=== PATIENT | female | born 1945 ===

== ENCOUNTER 2021-08-15 10:52 | Outpatient (CLI) | payer OTHER | END 2021-08-15 13:00 | disposition home or self-care (01) | LOC: MAMO-SONO 10:52 | PROVIDERS: ATTEND Family Medicine | DX: R92.8 Other abnormal and inconclusive findings on diagnostic imaging of breast (principal); C50.411 Malignant neoplasm of upper-outer quadrant of right female breast ==

== ENCOUNTER 2022-08-17 09:07 | Outpatient (CLI) | payer OTHER | END 2022-08-17 09:15 | disposition home or self-care (01) | LOC: MAMO-SONO 09:07 | PROVIDERS: ATTEND Family Medicine | DX: C50.411 Malignant neoplasm of upper-outer quadrant of right female breast (principal); R92.8 Other abnormal and inconclusive findings on diagnostic imaging of breast ==

== ENCOUNTER 2023-08-30 09:05 | Outpatient (CLI) | payer OTHER | END 2023-08-30 09:12 | disposition home or self-care (01) | LOC: MAMO-SONO 09:05 | PROVIDERS: ATTEND Family Medicine | DX: R92.8 Other abnormal and inconclusive findings on diagnostic imaging of breast (principal) ==

== ENCOUNTER 2024-09-23 09:03 | Outpatient (CLI) | payer OTHER | END 2024-09-23 09:05 | disposition home or self-care (01) | LOC: MAMO-SONO 09:03 | PROVIDERS: ATTEND Family Medicine | DX: R92.8 Other abnormal and inconclusive findings on diagnostic imaging of breast (principal); Z12.31 Encounter for screening mammogram for malignant neoplasm of breast ==